=== PATIENT | male | born 1975 | race Caucasian/White ===

== ENCOUNTER 2017-11-05 12:42 | Emergency (ER) | payer BC, OTHER ==
[2017-11-05] MEDS ORDERED: KETOROLAC TROMETHAMINE INJ 30 MG/ML VIAL IV ONE (13:11)
--- NOTE | 2017-11-05 13:34 | CT ---
EXAM DESCRIPTION: Head CLINICAL HISTORY: headache COMPARISON: None available TECHNIQUE: Contiguous axial images through the head were obtained without intravenous contrast administration. Sagittal and coronal reconstructions were reviewed. FINDINGS: No evidence of acute major vascular territorial infarct or intraparenchymal hemorrhage. No intra-axial or extra-axial fluid collections are identified. The ventricles and cisterns appear normal in caliber. The sella and suprasellar regions appear normal. The structures of the posterior fossa are intact. The globes are intact bilaterally. The visualized paranasal sinuses and mastoid air cells are well-aerated. Review of the bones demonstrates no gross instability. IMPRESSION: No CT evidence of acute intracranial process. This exam was performed according to our departmental dose-optimization program, which includes automated exposure control, adjustment of the mA and/or kV according to patient size and/or use of iterative reconstruction technique. Electronically signed by: Bita Man MD 11/05/2017 1:33 PM CDT
--- NOTE | 2017-11-05 14:50 | ED.PDOC ---
History of Present Illness - General Chief Complaint: General Stated Complaint: hypertension, weakness Time Seen by Provider: 11/05/17 12:56 Source: patient, family Exam Limitations: no limitations - History of Present Illness Timing/Duration: unsure - has had headaache for 1 month, dizziness for a week with weakness Severity: moderate Improving Factors: rest Worsening Factors: movement Associated Symptoms: weakness Allergies/Adverse Reactions: Allergies NO KNOWN ALLERGY Allergy (Verified 10/12/12 16:20) Home Medications: Ambulatory Orders Meclizine HCl [Meclizine 25] 25 mg PO TID PRN #15 tab 11/05/17 Orphenadrine Citrate [Orphenadrine Citrate ER] 100 mg PO BID PRN #20 tab Review of Systems - Review of Systems Constitutional: States: malaise, weakness. Denies: fever EENTM: States: no symptoms reported Respiratory: States: no symptoms reported Cardiology: States: no symptoms reported Gastrointestinal/Abdominal: States: no symptoms reported Musculoskeletal: States: no symptoms reported Skin: States: no symptoms reported Neurological: States: headache, weakness - generalized. Denies: numbness, paresthesia Endocrine: States: no symptoms reported Hematologic/Lymphatic: States: no symptoms reported Past Medical History (General) - Patient Medical History Hx Stroke: No Hx Dementia: No Hx Hypertension: Yes Hx Diabetes: No Family Medical History - Family History Mother Family History: Unknown Physical Exam - Physical Exam General Appearance: Alert, Anxious, Restless Eye Exam: bilateral normal Ears, Nose, Throat: hearing grossly normal, normal ENT inspection, normal pharynx Neck: limited range of motion, other - s/p cervical fusion with muscle spasms paracervically Respiratory: chest non-tender, lungs clear Cardiovascular/Chest: normal peripheral pulses, regular rate, rhythm 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 Copy, Patient Portal Self Enrollment Prescriptions: Meclizine HCl [Meclizine 25] 25 mg PO TID PRN #15 tab PRN Reason: Dizziness Orphenadrine Citrate [Orphenadrine Citrate ER] 100 mg PO BID PRN #20 tab PRN Reason: Headache Or Mild Pain Home Medications: Ambulatory Orders Meclizine HCl [Meclizine 25] 25 mg PO TID PRN #15 tab 11/05/17 Orphenadrine Citrate [Orphenadrine Citrate ER] 100 mg PO BID PRN #20 tab
[2017-11-05 15:40] VITALS: BP 132/81; TEMP 97; O2SAT 96
== END 2017-11-05 15:35 | disposition home or self-care (01) ==
LOC: ER 12:42
DX: G44.209 Tension-type headache, unspecified, not intractable (principal); R42 Dizziness and giddiness; I10 Essential (primary) hypertension
CPT/HCPCS: 36415; 70450; 80053; 85025; J1885; J2060

== ENCOUNTER 2019-04-07 13:45 | Emergency (ER) | payer SELFPAY ==
[2019-04-07] MEDS ORDERED: MORPHINE SULFATE INJ 10 MG/ML VIAL IV ONE ×3 (14:01→15:15)
[2019-04-07] MEDS ORDERED: MORPHINE SULFATE INJ 10 MG/ML VIAL ONE (14:07)
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
[2019-04-07 14:27] VITALS: TEMP 98.1
[2019-04-07] MEDS ORDERED: TETANUS,DIPHTHERIA,PERTUSSIS 1 EA SYG IM ONE (14:54)
[2019-04-07] MEDS ORDERED: TETRACAINE HCL 0.5% OPHTH SOL 1 DROP ONE (14:57)
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
[2019-04-07] MEDS ORDERED: SODIUM CHLORIDE 0.9% 1000ML 1,000 ML ONE (14:58)
[2019-04-07] MEDS ORDERED: HYDROcodone 10MG/APAP 325MG 1 EA TAB PO ONE (18:15)
[2019-04-07] MEDS ORDERED: FLUORESCEIN SODIUM OPHTH STRIP BOTH_EYES ONE (18:26)
[2019-04-07] MEDS ORDERED: CIPROFLOXACIN 0.3% OPHTH SOL 1 DROP BOTH_EYES SCH (18:30)
[2019-04-07 19:25] VITALS: O2SAT 99
[2019-04-07 19:26] VITALS: BP 161/92
== END 2019-04-07 19:30 | disposition home or self-care (01) ==
LOC: ER 13:45
DX: T20.10XA Burn of first degree of head, face, and neck, unspecified site, initial encounter (principal); I10 Essential (primary) hypertension; X00.8XXA Other exposure to uncontrolled fire in building or structure, initial encounter; Y99.0 Civilian activity done for income or pay; Y92.69 Other specified industrial and construction area as the place of occurrence of the external cause; Z23 Encounter for immunization; Z79.899 Other long term (current) drug therapy
CPT/HCPCS: 36600; 71046; 80048; 82803; 82805; 85025; 90471; 90715; J2270; J7030